=== PATIENT | female | born 1945 | race Caucasian/White ===

== ENCOUNTER 2020-08-21 14:26 | Outpatient (CLI) | payer MEDICARE, SELFPAY ==
--- NOTE | ~2020-08-21 | MM_ITS ---
EXAMINATION: MM screening jessica BI w simeon HISTORY: Screening TECHNIQUE: Craniocaudal and mediolateral oblique 3-D tomosynthesis images were obtained and synthetic 2-D images were generated. CAD analysis was submitted and interpreted. COMPARISON: Comparison to multiple prior studies sequentially, with oldest reviewed study dated 09/2017. BREAST PARENCHYMAL COMPOSITION: There are scattered areas of fibroglandular density. FINDINGS: There is no evidence of suspicious mass, calcification, or architectural distortion to sugg est malignancy in either breast. There has been no suspicious interval change. IMPRESSION: 1. No mammographic evidence of malignancy. 2. Recommend routine screening mammography in one year. BI-RADS Category 1: Negative Reviewed, dictated and finalized at location A. ATCHER SERVICE OR WORK
--- NOTE | ~2020-08-21 | DEXA_ITS ---
Bone Density Report Name: Samara Meneses Age: 75 Sex: Female Ethnicity: White Date of : 1945 Indication: postmenopausal; height loss; hysterectomy; Referring Provider: Jameel Cruz Study: Bone densitometry was performed. Exam Date: August 21, 2020 Accession number: [id number] Bone Density: Region BMD T-score Z-score Classification AP Spine (L1, L2) 1.042 0.6 2.9 Normal Femoral Neck (Left) 0.729 -1.1 1.1 Osteopenia Total Hip (Left) 0.863 -0.6 1.2 Normal Total Hip Bilateral Avg 0.860 -0.7 1.2 Normal Femoral Neck (Right) 0.733 -1.0 1.1 Normal Total Hip (Right) 0.855 -0.7 1.1 Normal World Health Organization criteria for BMD impression classify patients as: Normal (T-score at or above -1.0), Osteopenia (T-score between -1.0 and -2.5), or Osteoporosis (T-score at or below -2.5). 10-year Fracture Risk(1): Major Osteoporotic Fracture 11% Hip Fracture 1.8% Reported Risk Factors: [place] (), Neck BMD=0.729, BMI=25.7 (1) FRAX(R) Version 3.08. Fracture probability calculated for an untreated patient. Fracture probability may be lower if the patient has received treatment. Clinical Information Provided by Patient: Has the following medical conditions: Hysterectomy Patient maximum height was 65 Menopause Age: 36 No regular weight bearing exercise Onset of menses at age 12 Number of children 4 Impression: The patient has low bone mass, based on the Left Femoral Neck T-score. The patient has an estimated ten-year risk of hip fracture of 1.8% and an estimated ten-year risk of major fracture of 11%, based on the WHO FRAX algorithm. Discussion: BONE DENSITY IS LOW AT ONE OR MORE SKELETAL SITES. This patient's lowest T-score is low at one or more skeletal sites. It meets the World Health Organization's (WHO) criteria for ?low bone mass? (T-score between -1.0 and -2.5). The patient's 10-year risk of fracture as calculated by FRAX is less than the threshold where pharmacological therapy is recommended by the National Osteoporosis Foundation (NOF). However, all treatment decisions require clinical judgment and consideration of individual patient factors, including patient preferences, comorbidities, previous drug use, risk factors not captured in the FRAX model (e.g., frailty, falls, vitamin D deficiency, increased bone turnover, interval significant decline in bone density) and possible under or overestimation of fracture risk by FRAX. The patient should follow a healthful lifestyle (good nutrition with adequate calcium and vitamin D, and appropriate weight-bearing exercise). Follow-Up: Consider repeating this study in 2 to 3 years to reassess this patient's status, or sooner if there is some new clinical indication. Reported by: RAY on 08/21/2020 3:01:00 PM.
== END 2020-08-21 14:27 | disposition home or self-care (01) ==
LOC: ANHIMG 14:29
PROVIDERS: PCP Family Medicine; Visit Provider Family Medicine
DX: Z12.31 Encounter for screening mammogram for malignant neoplasm of breast (principal); Z78.0 Asymptomatic menopausal state; M85.852 Other specified disorders of bone density and structure, left thigh
CPT/HCPCS: 77063; 77067; 77080

== ENCOUNTER 2020-12-29 13:16 | Outpatient (CLI) | payer MEDICARE, SELFPAY ==
--- NOTE | 2020-12-29 17:10 | P.PCNPFT_ITS ---
PFT Interpretation This is a pulmonary function test with pre and post-bronchodilator spirometry, plethysmography and diffusing capacity. The test was performed and results interpreted in accordance with the 2019 and 2005 ATS/ERS Task Force guidelines respectively using the Global Lung Function Initiative-2012 reference equations. Patient demonstrated good effort and c ooperation. Reproducibility criteria were met. The quality of the pre bronchodilator spirometry maneuver was Grade A and post bronchodilator spirometry maneuver was Grade A. Findings: Spirometry: There is decreased maximal expiratory airflow at all lung volumes with concave expiratory flow tracing. The contour the inspiratory flow tracing is normal. The pre bronchodilator FVC is 2.05 L, 74% predicted. The pre bronchodilator FEV1 is 1.41 L, 67% predicted. The FEV1: FVC ratio 69%. The post bronchodilator FVC is 2.26 L, representing an 11% increase. The post bronchodilator FEV1 is 1.49 L, representing a 5% increase. Plethysmography: The total lung capacity is 4.33 L, 83% predicted. The functional residual capacity is 2.65 L, 89% predicted. The residual volume is 2.29 L, sats 97% predicted. Diffusing capacity: The absolute diffusion capacity is 14.9, 74% predicted. The diffusing capacity corrected for alveolar volume is 4.40, 106% predicted. Impression: There is a moderate obstructive abnormality without significant improvement after inhaling a single dose of albuterol. The lung volumes are normal. The diffusing capacity is normal. There are no prior studies for comparison PFT Procedure Performed PFT Procedure Performed Spirometry with Pre/Post Bronchodilator Plethysmography (Lung Vol) Diffusing Cap (DLCO)
== END 2020-12-29 13:17 | disposition home or self-care (01) ==
PROVIDERS: PCP Family Medicine; Visit Provider Family Medicine
DX: R06.00 Dyspnea, unspecified (principal); R94.2 Abnormal results of pulmonary function studies
CPT/HCPCS: 94060; 94726; 94729

== ENCOUNTER 2020-12-30 07:30 | Outpatient (CLI) | payer MEDICARE, SELFPAY ==
--- NOTE | ~2020-12-30 | XR_ITS ---
XR chest 2V DATE: 12/30/2020 07:45 INDICATION: Cough, shortness of breath for 6 months TECHNIQUE: PA and lateral views COMPARISON: None FINDINGS: There is resection of the lateral aspect of the right clavicle. Osteopenia. There is old pulmonary granulomatous disease. No active pulmonary infiltrate or consolidation, pleura l effusion or pulmonary vascular congestion or pneumothorax is evident Normal heart size. Aortic arch and descending thoracic and abdominal aortic calcification. IMPRESSION: No active cardiopulmonary disease Reviewed, dictated and finalized at location A.
== END 2020-12-30 07:31 | disposition home or self-care (01) ==
LOC: ANHIMG 07:33
PROVIDERS: PCP Family Medicine; Visit Provider Family Medicine
DX: R06.00 Dyspnea, unspecified (principal)
CPT/HCPCS: 71046

== ENCOUNTER 2021-01-10 07:50 | Outpatient (CLI) | payer MEDICARE, SELFPAY ==
--- NOTE | 2021-01-10 | EST_ITS ---
Patient Info Name: Samara Meneses Age: 75 years : 1945 Gender: Female Ht: 65 in Wt: 150 lbs BSA: 1.78 m2 Heart Rhythm: Sinus Rhythm Exam Date: 01/10/2021 8:59 AM Exam Location: [facility] Stress Patient Status: Outpatient Admit Date: 01/10/2021 Staff Ordering Physician: Jameel Cruz MD Attending Provider: Jameel Cruz MD Exercise Technologist: Saima Moser CT Exercise Physician: Edmar Thurman MD Exam Type: CA stress arnold w NM Study Info A regadenoson stress test was performed. Summary 1. Normal ECG response to Lexiscan. 2. No arrhythmias were observed during the examination. 3. Please correlate with nuclear medicine images, reported separately. 4. No chest discomfort with stress test. Protocol: Lexiscan Stress ECG Details Stage: REST Duration (min): 1 min : 10 sec HR (bpm): 70 SBP (mmHg): 127 DBP (mmHg): 73 Stage: REST Duration (min): 4 min : 50 sec HR (bpm): 67 SBP (mmHg): 127 DBP (mmHg): 73 Stage: STAGE 1 Duration (min): 0 min : 59 sec HR (bpm): 84 SBP (mmHg): 136 DBP (mmHg): 64 Stage: RECOVERY Duration (min): 1 min : 0 sec HR (bpm): 90 SBP (mmHg): 136 DBP (mmHg): 64 Stage: RECOVERY Duration (min): 2 min : 0 sec HR (bpm): 89 SBP (mmHg): 136 DBP (mmHg): 64 Stage: RECOVERY Duration (min): 3 min : 0 sec HR (bpm): 86 SBP (mmHg): 137 DBP (mmHg): 53 Stage: RECOVERY Duration (min): 3 min : 38 sec HR (bpm): 86 SBP (mmHg): 137 DBP (mmHg): 53 Rest HR: 67 bpm Peak HR: 90 bpm Rest Sys BP: 127 mmHg Peak Sys BP: 137 mmHg Max Pred HR: 144 bpm % Max Pred HR: 63 % Target HR: 122 bpm Max RPP: 12,330 bpm*mmHg Termination Reason: Completed protocol Cardiac Symptoms: None Total Time: 1 min : 0 sec Rest Sams BP: 73 mmHg Peak Sams BP: 53 mmHg Total Dose: 0.4 mg Resting ECG Normal sinus rhythm. PVC's. Stress ECG Normal ECG response to Lexiscan. Arrhythmias No arrhythmias were observed during the examination. Report Signatures
--- NOTE | ~2021-01-10 | NM_ITS ---
EXAMINATION: NM arnold stress w perfusion DATE: 01/10/2021 10:10 CDT INDICATION: Shortness of breath TECHNIQUE: Rest images were obtained following intravenous administration of 10.4 mCi Tc99m tetrofosm in (Myoview). The patient was infused intravenously with Lexiscan (regadenoson). Then, 33.3 mCi Tc99m tetrofosmin (Myoview) was administered intravenously, and stress images were obtained. Data was kale nstructed into short axis and horizontal and vertical long axis SPECT images. Gated SPECT images were also obtained. COMPARISON: None. FINDINGS: There is no definite reversible or fixed perfusion abnormality to suggest ischemia or infar ction. There is no segmental wall motion abnormality. Left ventricular ejection fraction measures 7 9%. IMPRESSION: 1. No definite ischemia or infarct. 2. Normal left ventricular ejection fraction measuring 79%. Reviewed, dictated and finalized at location B.
== END 2021-01-10 07:51 | disposition home or self-care (01) ==
PROVIDERS: PCP Family Medicine; Visit Provider Family Medicine
DX: R06.02 Shortness of breath (principal); R06.00 Dyspnea, unspecified; R68.89 Other general symptoms and signs
CPT/HCPCS: 78452; 93017; A9502; J2785

== ENCOUNTER 2021-08-01 10:15 | Outpatient (CLI) | payer MEDICARE, SELFPAY ==
--- NOTE | ~2021-08-01 | CT_ITS ---
EXAMINATION: CT abdomen pelvis wo con EXAM DATE: 08/01/2021 10:49 INDICATION: R10.31 - Right lower quadrant pain. TECHNIQUE: Spiral CT of the abdomen and pelvis was performed without contrast. Axial, coronal and s agittal images of the abdomen and pelvis were reviewed. The dose-length product (DLP) for this exami nation was 345.93 mGy-cm. The exposure was tailored according to patient size (auto mA exposure cont rol), and iterative reconstruction (ASIR) was used as additional dose reduction technique. There is no prior study for comparison. FINDINGS: Splenic granulomata. The liver, spleen, adrenal glands and pancreas are otherwise unremark able. Gallbladder not identified, patient likely has had cholecystectomy. There is no nephrolithias is or hydronephrosis. The uterus is not identified and has likely been surgically resected. The bl adder is unremarkable. There is no retroperitoneal or pelvic lymphadenopathy. There is moderate sc attered arteriosclerotic disease. Small supraumbilical fat-containing hernia. The appendix is not positively visualized. There is no pericecal inflammatory change to suggest appe ndicitis. There is small sliding gastroesophageal hiatal hernia. Lipomatous hypertrophy of the ileo cecal valve. There is expected amount of colonic stool. No free intraperitoneal gas. The heart is normal in size. There are no pericardial or pleural effusions. Trace pericardial effusion. There are no osteoblastic or osteolytic lesions identified. Interbody fusion L4-5. Moderate to severe disc disease L3-4 and L5-S1. Mild lumbar levoscoliosis. IMPRESSION: Chronic, surgical changes. Reviewed, dictated and finalized at location B. ING EQUIPMENT OPERATOR IMPRESSION: Chronic, surgical changes.
--- NOTE | ~2021-08-01 | XR_ITS ---
XR lumbar spine 2-3V DATE: 08/01/2021 10:42 INDICATION: Low back pain TECHNIQUE: AP, lateral, coned lateral lumbosacral views COMPARISON: 06/26/2013 lumbar spine FINDINGS: There is mild levoscoliosis of the lumbar spine. Osteopenia. Status post interbody spinal fusion at L4-5. There is severe degenerative disc disease at L3-4, considerably advanced since 06/26/2013. There is m oderate degenerative disc disease at L2-3. No fracture or spondylolisthesis or bone destruction is evident. The lumbar pedicles appear intact. The sacroiliac joints appear normal. Surgical clips overlie the right upper quadrant and left lower abdomen and pelvis. IMPRESSION: Status post interbody spinal fusion at L4-5 Severe degenerative disease at L3-4, moderate degenerative disease at L2-3 Mild levoscoliosis Osteopenia Reviewed, dictated and finalized at location A. NCIAL COMPLIANCE MANAGER
== END 2021-08-01 10:16 | disposition home or self-care (01) ==
LOC: ANHIMG 10:22
PROVIDERS: PCP Family Medicine; Visit Provider Nurse Practitioner Family
DX: R10.31 Right lower quadrant pain (principal); K42.9 Umbilical hernia without obstruction or gangrene; M41.9 Scoliosis, unspecified; M47.817 Spondylosis without myelopathy or radiculopathy, lumbosacral region
CPT/HCPCS: 72100; 74176

== ENCOUNTER 2021-11-19 09:28 | Outpatient (CLI) | payer MEDICARE, SELFPAY ==
--- NOTE | ~2021-11-19 | XR_ITS ---
EXAMINATION: XR barium swallow modified EXAM DATE: 11/19/2021 10:13 INDICATION: Coughing. Dysphagia. TECHNIQUE: Modified barium esophagram was performed by speech pathologist with radiologist Dr. Sanjiv Arevalo present to administered fluoroscopy. Speech pathologist administered barium in varying consis tencies as per speech pathologist documentation. This was recorded on tape. There was total fluorosc opic time of 0.1 minutes. The DAP for this procedure was 0.7 Gycm2. A total of 2 images sent to PAC S from the exam. FINDINGS: Oral stage: Adequate function. Pharyngeal phase: Adequate function. Laryngeal penetration: None. Aspiration: None. Laryngeal sensitivity: Present. IMPRESSION: Normal modified esophagram exam. Please refer to speech pathologist findings and specifi c feeding recommendations. Reviewed, dictated and finalized at location A. P MAKER IMPRESSION: Normal modified esophagram exam. Please refer to speech pathologis t findings and specific feeding recommendations.
--- NOTE | 2021-11-19 10:30 | STOPEVAL ---
Thank you for referring Samara Meneses to [facility].? Please sign and return this evaluation form. Referring Physician Date Attending Provider: Alexandre Tracey, Therapy Assessment Status Assessment Status Assessment Status Evaluation Outpatient Past Medical History Past Medical History No Past Medical/Surgical History Patient/Family Denies Significant Past Medical/ Surgical History Pain Assessment Timing of Pain Assessment Timing of Pain Assessment Assessment Self Report Self Report Pain Level 0 Pain Score Pain Score 0: Self Report Modified Barium Swallow Evaluation Consistency Solid Consistency 5 mL Method of Presentation Spoon Oral Preparatory Symptoms Within Functional Limits Oral Phase Symptoms Within Functional Limits Pharyngeal Phase Symptoms Within Functional Limits Severity of Vallecular Residue None - 0% No Residue Severity of Pyriform Sinus Residue None - 0% No Residue 8 Point Laryngeal Penetration-Aspiration Material Does Not Enter Airway Scale Cervical/Esophageal Symptoms Within Functional Limits Mixed Consistency 5 mL Method of Presentation Spoon Oral Preparatory Symptoms Within Functional Limits Oral Phase Symptoms Within Functional Limits Pharyngeal Phase Symptoms Within Functional Limits Severity of Vallecular Residue None - 0% No Residue Severity of Pyriform Sinus Residue None - 0% No Residue 8 Point Laryngeal Penetration-Aspiration Material Does Not Enter Airway Scale Cervical/Esophageal Symptoms Within Functional Limits Pureed Consistency 5 mL Method of Presentation Spoon Oral Preparatory Symptoms Within Functional Limits Oral Phase Symptoms Within Functional Limits Pharyngeal Phase Symptoms Within Functional Limits Severity of Vallecular Residue None - 0% No Residue Severity of Pyriform Sinus Residue None - 0% No Residue 8 Point Laryngeal Penetration-Aspiration Material Does Not Enter Airway Scale Cervical/Esophageal Symptoms Within Functional Limits Pureed Consistency 3 mL Method of Presentation Spoon Oral Preparatory Symptoms Within Functional Limits Oral Phase Symptoms Within Functional Limits Pharyngeal Phase Symptoms Within Functional Limits Severity of Vallecular Residue None - 0% No Residue Severity of Pyriform Sinus Residue None - 0% No Residue 8 Point Laryngeal Penetration-Aspiration Material Does Not Enter Airway Scale Cervical/Esophageal Symptoms Within Functional Limits Thin Uncontrolled 1 Method of Presentation Cup Oral Preparatory Symptoms Within Functional Limits Oral Phase Symptoms Within Functional Limits Pharyngeal Phase Symptoms Within Functional Limits
== END 2021-11-19 09:29 | disposition home or self-care (01) ==
LOC: ANHIMG 09:30
PROVIDERS: PCP Family Medicine; Visit Provider Otolaryngology
DX: R13.10 Dysphagia, unspecified (principal)
CPT/HCPCS: 92611

== ENCOUNTER 2022-02-05 10:29 | Outpatient (CLI) | payer MEDICARE, SELFPAY ==
--- NOTE | ~2022-02-05 | XR_ITS ---
XR chest 2V 02/05/2022 10:52 Indication: Cough. Procedure: 2 view chest Comparison: 12/30/2020 Findings: Heart size normal. Calcified granuloma right mid thorax. There is atherosclerosis of the ao rta. No focal air space disease, pulmonary edema, pleural effusion or suspected pneumothorax. Impression: 1: No acute cardiopulmonary disease. Reviewed, dictated and finalized at location A. Impression: 1: No acute cardiopulmonary disease.
== END 2022-02-05 10:30 | disposition home or self-care (01) ==
LOC: ANHIMG 10:36
PROVIDERS: PCP Family Medicine; Visit Provider Family Medicine
DX: R05.9 Cough, unspecified (principal)
CPT/HCPCS: 71046

== ENCOUNTER → 2022-06-05 11:11 | Outpatient (CLI) | payer MEDICARE, SELFPAY ==
--- NOTE | ~2022-06-05 | XR_ITS ---
XR lumbar spine 2-3V DATE: 06/05/2022 11:31 INDICATION: Low back pain for one month. No injury. TECHNIQUE: AP, lateral, coned lateral lumbosacral views COMPARISON: 08/01/2021 lumbar spine FINDINGS: There is diffuse osteopenia. There is mild levoscoliosis of the lumbar spine. Status post interbody spinal fusion at L4-5. There is severe degenerative disc disease at L3-4. There is moderately severe degenerative disc disea se at L5-S1. Mild degenerative disc disease at T12-L1, L1 to and moderate degenerative disc disease at L2-3. No fracture or bone destruction of the lumbar spine is evident. The lumbar and included lower thoraci c pedicles are intact. The sacroiliac joints are intact. Surgical clips overlie the lower left abdomen. IMPRESSION: Osteopenia Mild levoscoliosis Multilevel degenerative disc disease, most severe at L3-4 Status post interbody surgical fusion at L4-5 Reviewed, dictated and finalized at location B.
--- NOTE | ~2022-06-05 | XR_ITS ---
XR thoracic spine 3V DATE: 06/05/2022 11:31 INDICATION: Thoracic back pain for one month. No injury. TECHNIQUE: AP, lateral, swimmer views COMPARISON: None FINDINGS: There is moderately severe degenerative disc disease in the lower cervical spine. Osteopenia. There is mild dextro scoliosis and mild degenerative spurring of the thoracic spine. No thoracic spin e fracture or bone destruction is evident. The thoracic pedicles are intact. No paraspinal soft tissu e thickening. Old pulmonary granulomatous disease IMPRESSION: Mild thoracic dextro scoliosis Osteopenia Mild degenerative spurring of the thoracic spine Prominent degenerative disc disease in the lower cervical spine Reviewed, dictated and finalized at location B.
== END ==
PROVIDERS: PCP Family Medicine; Visit Provider Family Medicine
DX: M47.817 Spondylosis without myelopathy or radiculopathy, lumbosacral region (principal); M47.813 Spondylosis without myelopathy or radiculopathy, cervicothoracic region; M47.815 Spondylosis without myelopathy or radiculopathy, thoracolumbar region; M41.9 Scoliosis, unspecified; Z98.1 Arthrodesis status
CPT/HCPCS: 72072; 72100

== ENCOUNTER 2022-07-24 11:16 | Outpatient (CLI) | payer MEDICARE, SELFPAY ==
--- NOTE | ~2022-07-24 | US_ITS ---
EXAMINATION: US carotid duplex BI DATE: 07/24/2022 12:30 INDICATION: Cerebral atherosclerosis. Dizziness TECHNIQUE: Grayscale, color Doppler, and pulsed Doppler images of the cervical carotid arteries were obtained. The degree of vessel stenosis is placed in one of the following categories: normal, <50%, 5 0-69%, >=70% but less than near-occlusion, near-occlusion, or total occlusion. Note that percent sten osis relative to normal distal artery lumen diameter is indirectly measured from velocity measurement s as described by Myles, et al. Radiology 2003; 229:340-346. COMPARISON: None. FINDINGS: RIGHT: The right common carotid artery (CCA) peak systolic velocity (PSV) is 99 cm/s. The right internal car otid artery (ICA) PSV is 70 cm/s. The right ICA end-diastolic velocity (EDV) is 23 cm/s. The right IC A/CCA PSV ratio is 0.7. Grayscale and color Doppler images yield an estimate of <50% diameter reducti on from plaque in the ICA. The external carotid artery (ECA) PSV is 96 cm/s. There is antegrade flow in the right vertebral artery. LEFT: The left CCA PSV is 86 cm/s. The left ICA PSV is 47 cm/s. The left ICA EDV is 8 cm/s. The left ICA/CC A PSV ratio is 0.5. Grayscale and color Doppler images yield an estimate of <50% diameter reduction f rom plaque in the ICA. The ECA PSV is 77 cm/s. There is antegrade flow in the left vertebral artery. IMPRESSION: 1. <50% stenosis in the right internal carotid artery. 2. <50% stenosis in the left internal carotid artery. Reviewed, dictated and finalized at location A. GEMENT QUALITY CONSULTANT
== END 2022-07-24 11:17 | disposition home or self-care (01) ==
PROVIDERS: PCP Family Medicine; Visit Provider Family Medicine
DX: R42 Dizziness and giddiness (principal); I65.23 Occlusion and stenosis of bilateral carotid arteries
CPT/HCPCS: 93880

== ENCOUNTER → 2022-11-01 07:35 | Outpatient (CLI) | payer MEDICARE, SELFPAY ==
--- NOTE | ~2022-11-01 | XR_ITS ---
EXAMINATION: XR lumbar spine 2-3V DATE: 11/01/2022 07:59 INDICATION: Low back pain. TECHNIQUE: 3 views of lumbar spine were obtained. COMPARISON: Lumbar spine radiographs 06/05/22 FINDINGS: There is 10 degrees levoscoliosis of lumbar spine. There is 3 mm retrolisthesis of L3 on L4 . There are changes of anterior fusion procedure at L4-L5 with interbody device. Vertebral body heigh ts are normal. There is mildly decreased disc height at L2-L3, severely decreased disc height at L3-L 4, and moderately decreased disc height at L5-S1 with endplate remodeling. There is multilevel severe facet joint osteoarthritis. Surgical clips overlie the abdomen. IMPRESSION: 1. Stable severe lumbar spondylosis. 2. Anterior fusion procedure at L4-L5. 3. Lumbar levoscoliosis. Reviewed, dictated and finalized at location A. CHANGER
--- NOTE | ~2022-11-01 | XR_ITS ---
EXAMINATION: XR thoracic spine 3V DATE: 11/01/2022 07:59 INDICATION: Thoracic back pain. TECHNIQUE: 3 views of thoracic spine were obtained. COMPARISON: Thoracic spine radiographs 06/05/22 FINDINGS: There is 7 degrees dextrocurvature of thoracic spine. Vertebral body heights are normal. Th ere is mildly decreased disc height at multiple levels in mid thoracic spine. There are endplate oste ophytes at most levels. Calcified right lung nodules and calcified right hilar and mediastinal lymph nodes are consistent with old granulomatous disease. IMPRESSION: 1. Mild thoracic spondylosis, stable from 06/05/2022. Reviewed, dictated and finalized at location A. L PIN WORKER
== END ==
PROVIDERS: PCP Family Medicine; Visit Provider Family Medicine
DX: M47.814 Spondylosis without myelopathy or radiculopathy, thoracic region (principal); M47.816 Spondylosis without myelopathy or radiculopathy, lumbar region; M41.86 Other forms of scoliosis, lumbar region; Z98.1 Arthrodesis status
CPT/HCPCS: 72072; 72100

== ENCOUNTER 2022-12-30 00:07 | Day surgery (SDC) | payer MEDICARE, SELFPAY ==
[2022-11-13 09:55] VITALS: BMI 25.0
--- NOTE | 2022-12-29 10:31 | PM.HPGS ---
History of Present Illness History of Present Illness Consent: Risks, benefits, and alternatives have been discussed and questions answered. Patient agrees to proceed with procedure. Chief complaint: dysphagia Narrative: Samara Meneses is a 77 year old female referred because of dysphagia and a hiistory of polyps. Occasionally solid foods like meat or bread will get caught. She has had esophageal dilatation in the past but not for several years. Review of Systems Review of Systems: All systems reviewed & are unremarkable except as noted in HPI and below PMFSH Past Medical History Medical History Chronic low back pain without sciatica COPD with asthma Dyslipidemia Esophageal stricture Essential (primary) hypertension GERD without esophagitis Hypokalemia Intraductal papilloma of right breast Mild intermittent asthma without complication Osteopenia Vertigo Surgical History Surgical History History of cholecystectomy (~2002) History of lumbar surgery (~1999) History of lumpectomy of right breast 04/2018 History of nasal surgery (~1994) Hx of arthroscopic knee surgery (~2009) Hx of hysterectomy, total (~1978) Hx of lumbosacral spine surgery (~1999) Hx of rotator cuff surgery (Unknown) Family History Family History Other Family history of arthritis Family history of lung cancer Family history of malignant neoplasm Hypertension Social History Social History Smoking status: Never smoker Tobacco type: cigarettes Second hand tobacco smoke exposure: No Smoking end date: 09/15/1965 Alcohol intake: current Substance use: never Substance use type: does not use Living arrangements: with family Occupation/Education: retired Gender identity (if verbalized by the patient): Female Spiritual care concerns: No Meds Home Medications and Allergies Home Medications Medication Instructions Recorded Confirmed Type coenzyme Q10 50 mg capsule (Co 50 mg PO DAILY 12/30/19 12/16/22 History Q-10) albuterol sulfate 90 mcg/actuation 1 inh inhalation Q4H PRN shortness 09/20/20 12/16/22 Rx aerosol inhaler of breath or wheezing #18 grams pravastatin 40 mg tablet 40 mg PO DAILY 11/22/21 12/16/22 History cholecalciferol (vitamin D3) 50 50 mcg PO DAILY 02/05/22 12/16/22 History mcg (2,000 unit) capsule potassium chloride 10 mEq 10 meq PO DAILY #90 tabs 08/15/22 12/16/22 Rx tablet,extended release metoprolol succinate 50 mg 50 mg PO DAILY 11/13/22 12/16/22 History tablet,extended release 24 hr Allergies Allergy/AdvReac Type Severity Reaction Status Date / Time nebivolol Allergy Unknown Unknown Verified 12/30/22 09:34 codeine AdvReac Mild Gastrointestinal Verified 12/30/22 09:34 Upset propoxyphene AdvReac Mild Gastrointestinal Verified 12/30/22 09:34 Upset Exam Const: General: alert Orientation/consciousness: patient oriented x3 Resp: Auscultation: clear to auscultation bilaterally Cardio: Rhythm: regular rhythm GI: GI Palp: Yes Soft to palpation and No Tenderness to palpation present (GI) Neuro: General: patient oriented x3 Assessment and Plan Assessment and plan (1) Dysphagia: Code(s): R13.10 - Dysphagia, unspecified Status: Acute Assessment and Plan: EGD with possible biopsy or dilatation or cautery. (2) Colon cancer screening: Code(s): Z12.11 - Encounter for screening for malignant neoplasm of colon Status: Acute Assessment and Plan: Colonoscopy with possible biopsy or polypectomy or cautery or injection of substances.
[2022-12-30 09:37] VITALS: BP 136/90; PULSE 69; RESP 20; TEMP 36.3; O2SAT 99
[2022-12-30] MEDS: LACTATED RINGERS 1,000 ML 150 ML IV CONT (09:45)
--- NOTE | 2022-12-30 10:13 | WPDANESEPPF ---
Anes - Initial Pre Proc Eval Procedure: Operation Date: 12/30/22 10:45 Proposed Procedures p Esophagogastroduodenoscopy & Colonoscopy - Justin Davila MD Date/Time: 12/30/22 10:13 Surgeon: Justin Davila MD Pre Op Diagnosis: dysphagia Patient Data Age: 77 Gender: F Height: 1.65 m Weight: 67.7 kg Last Vital Signs Temp 97.4 F L 12/30/22 09:37 Pulse 69 12/30/22 09:37 Resp 20 12/30/22 09:37 BP 136/90 12/30/22 09:37 Pulse Ox 99 12/30/22 09:37 O2 Del Method Room Air 12/30/22 09:37 Allergies Allergy/AdvReac Type Severity Reaction Status Date / Time nebivolol Allergy Unknown Unknown Verified 12/30/22 09:34 codeine AdvReac Mild Gastrointestinal Verified 12/30/22 09:34 Upset propoxyphene AdvReac Mild Gastrointestinal Verified 12/30/22 09:34 Upset Home Medications Medication Instructions Recorded Confirmed Type coenzyme Q10 50 mg capsule (Co 50 mg PO DAILY 12/30/19 12/16/22 History Q-10) albuterol sulfate 90 mcg/actuation 1 inh inhalation Q4H PRN shortness 09/20/20 12/16/22 Rx aerosol inhaler of breath or wheezing #18 grams pravastatin 40 mg tablet 40 mg PO DAILY 11/22/21 12/16/22 History cholecalciferol (vitamin D3) 50 50 mcg PO DAILY 02/05/22 12/16/22 History mcg (2,000 unit) capsule potassium chloride 10 mEq 10 meq PO DAILY #90 tabs 08/15/22 12/16/22 Rx tablet,extended release metoprolol succinate 50 mg 50 mg PO DAILY 11/13/22 12/16/22 History tablet,extended release 24 hr Patient hx anesthesia problems: none Family hx anesthesia problems: none Results Review: All pre-operative results and documents have been reviewed as part of the pre-operative evaluation. [facility] Past Medical History Medical History Chronic low back pain without sciatica COPD with asthma Dyslipidemia Esophageal stricture Essential (primary) hypertension GERD without esophagitis Hypokalemia Intraductal papilloma of right breast Mild intermittent asthma without complication Osteopenia Vertigo Surgical History Surgical History History of cholecystectomy (~2002) History of lumbar surgery (~1999) History of lumpectomy of right breast 04/2018 History of nasal surgery (~1994) Hx of arthroscopic knee surgery (~2009) Hx of hysterectomy, total (~1978) Hx of lumbosacral spine surgery (~1999) Hx of rotator cuff surgery (Unknown) Family History Family History Other Family history of arthritis Family history of lung cancer Family history of malignant neoplasm Hypertension Social History Social History Smoking status: Never smoker Tobacco type: cigarettes Second hand tobacco smoke exposure: No Smoking end date: 09/15/1965 Alcohol intake: current Substance use: never Substance use type: does not use Living arrangements: with family Occupation/Education: retired Gender identity (if verbalized by the patient): Female Spiritual care concerns: No Anes - Eval Final PreProcedure Day of Procedure 12/30/22 10:13 Patient weight: normal Heart: regular rate and rhythm Lungs: clear to auscultation Airway: Mallampati scale class II Neurological: alert and oriented Last oral intake: >/= 8 hours ASA classification: III Emergent: no Anesthetic plan: proceed Anesthesia type and monitoring: general GIVS and standard monitoring Results Review: All pre-operative results and documents have been reviewed as part of the pre-operative evaluation. Informed Consent: The patient's anesthetic plan and its attendant risks and benefits were discussed with the patient/family/POA. Questions were solicited and answers provided to the satisfaction of the patient/family/POA.
--- NOTE | 2022-12-30 10:46 | SUR.OPER ---
EGD START: 1024; END: 1029. COLONOSCOPY START: 1036; END: 1045.
[2022-12-30 10:49] VITALS: BP 100/58; PULSE 81; RESP 28; O2SAT 94
[2022-12-30 10:59] VITALS: BP 127/95; PULSE 76; RESP 18; O2SAT 95
[2022-12-30 11:09] VITALS: BP 121/92; PULSE 76; RESP 20; O2SAT 100
== END 2022-12-30 11:16 | disposition home or self-care (01) ==
PROVIDERS: PCP Family Medicine; Visit Provider Internal Medicine Gastroenterology
PROC: 0DJ08ZZ Inspection of Upper Intestinal Tract, Via Natural or Artificial Opening Endoscopic (ICD-10-PCS; CPT 43235; principal; 2022-12-30 10:45)
DX: Z12.11 Encounter for screening for malignant neoplasm of colon (principal); K22.2 Esophageal obstruction; K29.70 Gastritis, unspecified, without bleeding; J44.9 Chronic obstructive pulmonary disease, unspecified; E78.5 Hyperlipidemia, unspecified; J45.20 Mild intermittent asthma, uncomplicated; I10 Essential (primary) hypertension; Z79.51 Long term (current) use of inhaled steroids
CPT/HCPCS: 43249; G0121; 88305; C1726; J2001; J2704; J7120

== ENCOUNTER → 2023-01-28 10:07 | Outpatient (CLI) | payer MEDICARE, SELFPAY ==
--- NOTE | ~2023-01-28 | XR_ITS ---
XR chest 2V 01/28/2023 10:17 Indication: Cough, shortness of breath and wheezing Procedure: 2 view chest Comparison: Comparison to multiple prior studies sequentially, with oldest reviewed study dated 12/30. Findings: Heart size is normal. Calcified granuloma superior segment right lower lobe. No focal air s pace disease, pulmonary edema, pleural effusion or suspected pneumothorax. Impression: 1: No acute cardiopulmonary disease. Reviewed, dictated and finalized at location L. Impression: 1: No acute cardiopulmonary disease.
== END ==
PROVIDERS: PCP Family Medicine; Visit Provider Physician Assistant
DX: R05.3 Chronic cough (principal)
CPT/HCPCS: 71046

== ENCOUNTER 2024-02-23 13:52 | Outpatient (CLI) | payer MEDICARE, SELFPAY ==
--- NOTE | ~2024-02-23 | CT_ITS ---
Non-contrast Head CT History: Headache Technique: Axial non-contrast imaging of the brain was performed. Dose reduction technique was used on this scan by utilizing automated exposure control and iterative reconstruction technique. The dose -length product (DLP) was 599.57 mGy-cm. Findings: There is no evidence of intracranial hemorrhage, mass lesion, or acute infarct. Brain par enchyma appears normal. The ventricles and subarachnoid spaces are normal in size. The calvarium ap pears normal. The visualized paranasal sinuses and mastoid air cells are clear. Impression: No significant abnormality seen. Reviewed, dictated and finalized at location . Impression: No significant abnormality seen.
--- NOTE | ~2024-02-23 | CT_ITS ---
CT cervical spine wo con Ordering provider: Rosario Gruber, ANP History: . FALL, UNSPECIFIED . Comparison: None. Technique: CT of the cervical spine was performed without contrast. Sagittal and coronal reformatted images were also obtained and reviewed. Radiation reduction technique utilized. FINDINGS: VERTEBRAE: No subluxation or acute fracture. The occipital condyles are intact. Degenerative changes with posterior osteophytes in the lower cervical area. DISC SPACES: Narrowing of the disc spaces C4-C5, C5-C6 and C6-C7. Facet joint disease at the level of C5-C6 and C6-C7. Multilevel uncovertebral joint osteoarthritic changes. Narrowing of the foramina at the level of C5-C6 and C6-C7 more on the left side with root compression. Slight narrowing of the ri ght lateral recess at the level of C5-C6 and the left lateral recess at the level of C6-C7 by osteoph yte formations. PARASPINOUS SOFT TISSUES: Normal. IMPRESSION: No acute osseous abnormality cervical spine. Multilevel degenerative disc disease with intervertebral foraminal narrowing and with root compressio n. Reviewed, dictated and finalized at location A. IMPRESSION: No acute osseous abnormality cervical spine. Multilevel degenerative disc disease with intervertebral foraminal narrowing an d with root compression.
== END 2024-02-23 13:53 ==
LOC: MICIMG 13:52
PROVIDERS: PCP Nurse Practitioner; Visit Provider Nurse Practitioner
DX: R51.9 Headache, unspecified (principal); M51.36 Other intervertebral disc degeneration, lumbar region
CPT/HCPCS: 70450; 72125

== ENCOUNTER 2024-05-11 01:31 | Day surgery (SDC) | payer MEDICARE, SELFPAY ==
--- NOTE | 2024-03-24 11:04 | PC.NURSE ---
Pt stated had stress test in January. Request for results faxed to Dr. Lee's office.
[2024-05-04 10:25] VITALS: BMI 25.0
[2024-05-11 07:35] VITALS: BP 159/71; PULSE 98; RESP 18; TEMP 36.3; O2SAT 58; BMI 24.5
[2024-05-11] MEDS: LACTATED RINGERS 1,000 ML 150 ML IV CONT (08:05)
--- NOTE | 2024-05-11 08:31 | WPDANESEPPF ---
Anes - Initial Pre Proc Eval Procedure: Operation Date: 05/11/24 09:00 Proposed Procedures p Esophagogastroduodenoscopy - Jeferson Trinidad MD Date/Time: 05/11/24 08:31 Surgeon: Jeferson Trinidad MD Pre Op Diagnosis: SOB, Dysphonia, other disease of digestive system Patient Data Age: 78 Gender: F Height: 1.65 m Weight: 66.9 kg Last Vital Signs Temp 97.3 F L 05/11/24 07:35 Pulse 58 L 05/11/24 07:35 Resp 18 05/11/24 07:35 BP 159/71 H 05/11/24 07:35 Pulse Ox 58 L 05/11/24 07:35 O2 Del Method Room Air 05/11/24 07:35 Allergies Allergy/AdvReac Type Severity Reaction Status Date / Time nebivolol Allergy Unknown Unknown Verified 01/08/24 09:24 codeine AdvReac Mild Gastrointestinal Verified 05/04/24 10:26 Upset propoxyphene AdvReac Mild Gastrointestinal Verified 05/04/24 10:26 Upset Home Medications Medication Instructions Recorded Confirmed Type coenzyme Q10 50 mg capsule (Co 50 mg PO DAILY 12/30/19 05/11/24 History Q-10) albuterol sulfate 90 mcg/actuation 1 inh inhalation Q4H PRN shortness 09/20/20 05/11/24 Rx aerosol inhaler of breath or wheezing #18 grams pravastatin 40 mg tablet 40 mg PO DAILY 11/22/21 05/11/24 History cholecalciferol (vitamin D3) 50 50 mcg PO DAILY 02/05/22 05/11/24 History mcg (2,000 unit) capsule metoprolol succinate 50 mg 50 mg PO DAILY 11/13/22 05/11/24 History tablet,extended release 24 hr potassium chloride 10 mEq 10 meq PO DAILY #90 tabs 02/03/23 05/11/24 Rx tablet,extended release hydrochlorothiazide 25 mg tablet 25 mg PO DAILY 11/20/23 05/11/24 History pantoprazole 40 mg tablet,delayed 40 mg PO BID 05/04/24 05/11/24 History release Patient hx anesthesia problems: none Family hx anesthesia problems: none Results Review: All pre-operative results and documents have been reviewed as part of the pre-operative evaluation. [facility] Past Medical History Medical History Chronic low back pain without sciatica COPD with asthma Dyslipidemia Esophageal stricture Essential (primary) hypertension Gastritis GERD without esophagitis History of esophageal stricture Hx of adenomatous colonic polyps Hypokalemia Intraductal papilloma of right breast Mild intermittent asthma without complication Osteopenia Vertigo Surgical History Surgical History History of cholecystectomy (~2002) History of lumbar surgery (~1999) History of lumpectomy of right breast 04/2018 History of nasal surgery (~1994) Hx of arthroscopic knee surgery (~2009) Hx of hysterectomy, total (~1978) Hx of lumbosacral spine surgery (~1999) Hx of rotator cuff surgery (Unknown) Family History Family History Other Family history of arthritis Family history of lung cancer Family history of malignant neoplasm Hypertension Social History Social History Smoking status: Never smoker Tobacco type: cigarettes Second hand tobacco smoke exposure: No Smoking end date: 09/15/1965 Alcohol intake: current Substance use: never Substance use type: does not use Living arrangements: with family Occupation/Education: retired Gender identity (if verbalized by the patient): Female Spiritual care concerns: No Anes - Eval Final PreProcedure Day of Procedure 05/11/24 08:31 Patient weight: normal Heart: regular rate and rhythm Lungs: clear to auscultation Airway: Mallampati scale class II Neurological: alert and oriented Last oral intake: >/= 8 hours ASA classification: III Emergent: no Anesthetic plan: proceed Anesthesia type and monitoring: general GIVS and standard monitoring Results Review: All pre-operative results and documents have been reviewed as part of the pre-operative evaluation. Informe
--- NOTE | 2024-05-11 08:48 | PM.HPGS ---
History of Present Illness History of Present Illness Consent: Risks, benefits, and alternatives have been discussed and questions answered. Patient agrees to proceed with procedure. Chief complaint: SOB, Dysphonia, other disease of digestive system Narrative: Samara Meneses is a 78 year old female with gerd and phlegm sensation, had esophagel ring dilated last year that helped, on ppi twice daily. Review of Systems Review of Systems: All systems reviewed & are unremarkable except as noted in HPI and below PMFSH Past Medical History Medical History Chronic low back pain without sciatica COPD with asthma Dyslipidemia Esophageal stricture Essential (primary) hypertension Gastritis GERD without esophagitis History of esophageal stricture Hx of adenomatous colonic polyps Hypokalemia Intraductal papilloma of right breast Mild intermittent asthma without complication Osteopenia Vertigo Surgical History Surgical History History of cholecystectomy (~2002) History of lumbar surgery (~1999) History of lumpectomy of right breast 04/2018 History of nasal surgery (~1994) Hx of arthroscopic knee surgery (~2009) Hx of hysterectomy, total (~1978) Hx of lumbosacral spine surgery (~1999) Hx of rotator cuff surgery (Unknown) Family History Family History Other Family history of arthritis Family history of lung cancer Family history of malignant neoplasm Hypertension Social History Social History Smoking status: Never smoker Tobacco type: cigarettes Second hand tobacco smoke exposure: No Smoking end date: 09/15/1965 Alcohol intake: current Substance use: never Substance use type: does not use Living arrangements: with family Occupation/Education: retired Gender identity (if verbalized by the patient): Female Spiritual care concerns: No Meds Home Medications and Allergies Home Medications Medication Instructions Recorded Confirmed Type coenzyme Q10 50 mg capsule (Co 50 mg PO DAILY 12/30/19 05/11/24 History Q-10) albuterol sulfate 90 mcg/actuation 1 inh inhalation Q4H PRN shortness 09/20/20 05/11/24 Rx aerosol inhaler of breath or wheezing #18 grams pravastatin 40 mg tablet 40 mg PO DAILY 11/22/21 05/11/24 History cholecalciferol (vitamin D3) 50 50 mcg PO DAILY 02/05/22 05/11/24 History mcg (2,000 unit) capsule metoprolol succinate 50 mg 50 mg PO DAILY 11/13/22 05/11/24 History tablet,extended release 24 hr potassium chloride 10 mEq 10 meq PO DAILY #90 tabs 02/03/23 05/11/24 Rx tablet,extended release hydrochlorothiazide 25 mg tablet 25 mg PO DAILY 11/20/23 05/11/24 History pantoprazole 40 mg tablet,delayed 40 mg PO BID 05/04/24 05/11/24 History release Allergies Allergy/AdvReac Type Severity Reaction Status Date / Time nebivolol Allergy Unknown Unknown Verified 01/08/24 09:24 codeine AdvReac Mild Gastrointestinal Verified 05/04/24 10:26 Upset propoxyphene AdvReac Mild Gastrointestinal Verified 05/04/24 10:26 Upset Vital Signs Vital Signs - 24 hr 05/11/24 07:35 Temperature 97.3 F L Pulse Rate 58 L Respiratory Rate 18 Blood Pressure 159/71 H Pulse Oximetry 58 L Oxygen Delivery Room Air Exam Const: General: comfortable and no acute distress HENMT: Face/Nose/Sinus: Normal nares present Eyes: General: appearance normal, both eyes and all related structures Neck: Neck: no JVD Resp: Auscultation: clear to auscultation bilaterally Cardio: Rate: regular rate Rhythm: regular rhythm GI: Inspection: non-distended GI Palp: Yes Soft to palpation Skin: General skin exam: normal color Neuro: General: gait normal Speech: normal speech Extrem: General: normal to inspection Psych: Mental Status: mental
[2024-05-11 09:03] VITALS: BP 109/50; PULSE 58; RESP 17; O2SAT 97
[2024-05-11 09:13] VITALS: BP 122/62; PULSE 56; RESP 16; O2SAT 97
[2024-05-11 09:23] VITALS: BP 144/73; PULSE 57; RESP 17; O2SAT 99
== END 2024-05-11 09:42 | disposition home or self-care (01) ==
PROVIDERS: PCP Nurse Practitioner; Referring Provider Nurse Practitioner; Visit Provider Internal Medicine Gastroenterology
PROC: 0DJ08ZZ Inspection of Upper Intestinal Tract, Via Natural or Artificial Opening Endoscopic (ICD-10-PCS; CPT 43235; principal; 2024-05-11 09:00)
DX: K22.2 Esophageal obstruction (principal); K44.9 Diaphragmatic hernia without obstruction or gangrene; I10 Essential (primary) hypertension; E78.5 Hyperlipidemia, unspecified; K21.9 Gastro-esophageal reflux disease without esophagitis; E87.6 Hypokalemia; G89.29 Other chronic pain; M54.50 Low back pain, unspecified; J44.89 Other specified chronic obstructive pulmonary disease; M85.88 Other specified disorders of bone density and structure, other site; Z79.51 Long term (current) use of inhaled steroids; Z98.890 Other specified postprocedural states; Z90.49 Acquired absence of other specified parts of digestive tract; Z98.1 Arthrodesis status; Z86.010 Personal history of colon polyps; Z87.19 Personal history of other diseases of the digestive system; Z80.1 Family history of malignant neoplasm of trachea, bronchus and lung
CPT/HCPCS: 43249; C1726; J2001; J2704; J7120